=== PATIENT | male | born 1990 | race Caucasian/White ===

== ENCOUNTER 2020-01-07 16:54 | Observation (INO) | payer BC ==
[~2020-01-07] VITALS: Ht 177.8 cm; Wt 79.4 kg
[2020-01-07 18:19] LABS: BASO % 0.1 % (0.0-2.0); EOS % 0.3 % (0-4.0); GRAN % 85.3 % (42.2-75.2); HEMATOCRIT 47.3 % (42.0-52.0); HEMOGLOBIN 16.5 g/dl (13.5-18.0); LYMPH % 8.7 % (20.0-51.0); MEAN CELL VOLUME 89 fl (80.0-100.0); MEAN CORPUSCULAR HEMOGLOBIN 31 pg (27.0-31.0); MEAN CORPUSCULAR HGB CONC 35 g/dl (33.0-37.0); MEAN PLATELET VOLUME 9.1 fl (7.4-10.4); MONO # 0.6 (0.1-0.6); MONO % 5.3 % (1.7-9.3); PLATELET COUNT 205 K/mm3 (130-400); RED BLOOD COUNT 5.32 M/mm3 (4.20-5.60); REDCELL DISTRIBUTION WIDTH-CV 11.9 % (11.5-14.5)
[2020-01-07 18:31] LABS: ALBUMIN 5.3 gm/dL (3.5-5.0); BILIRUBIN,TOTAL 1.4 mg/dL (0.0-1.0); C-REACTIVE PROTEIN 0.9 mg/dL (0.0-0.9); CALCIUM 10.2 mg/dL (8.4-10.2); CREATININE, serum 1.05 (0.66-1.25); POTASSIUM 3.8 mmol/L (3.4-5.0); TOTAL PROTEIN 8.5 gm/dL (6.4-8.2)
[2020-01-07 20:38] LABS: COLLECTION METHOD CLEAN CATCH
[2020-01-07 20:57] LABS: PH 6 (5-8); SQUAMOUS EPITHELIAL None Seen /hpf; URINE APPEARANCE Clear; URINE BACTERIA None Seen /hpf; URINE BILIRUBIN Negative (NEGATIVE); URINE BLOOD Negative (NEGATIVE); URINE COLOR Straw; URINE GLUCOSE Negative (NEGATIVE); URINE KETONE Trace (NEGATIVE); URINE LEUKOCYTE ESTERASE Negative (NEGATIVE); URINE NITRATE Negative (NEGATIVE); URINE PROTEIN(semi-quant) Negative (NEGATIVE); URINE RBC 0-2 /hpf; URINE UROBILINOGEN Negative (NEGATIVE)
--- NOTE | 2020-01-07 22:35 | NUR ---
REPORT RECEIVED FROM PACU NURSE. AWAITING ARRIVAL OF PATIENT TO ROOM 341, POST LAP APPY
[2020-01-07 22:45] VITALS: BP 101/56; PULSE 61; TEMP 98.1
--- NOTE | 2020-01-07 22:45 | NUR ---
ADMITTED FROM PACU VIA HOSPITAL BED, POST OP, TO ROOM 341. IV SITE INTACT TO LAC AND PATENT. PATIENT DENIES CHEST PAIN, SHORTNESS OF BREATH AND NAUSEA. DENIES URGE TO VOID.
--- NOTE | 2020-01-07 22:55 | NUR ---
PATIENT DENIES NAUSEA, DENIES URGE TO VOID AT THIS TIME.
[2020-01-07 23:15] VITALS: BP 100/61; PULSE 62
--- NOTE | 2020-01-07 23:15 | NUR ---
SEE eMAR FOR MEDS GIVEN FOR C/O PAIN. IVF INFUSING WITH NO PROBLEMS.
[2020-01-07 23:30] VITALS: BP 100/63; PULSE 65
[2020-01-08] VITALS (9 sets, daily range): BP systolic 95–126; BP diastolic 49–63; PULSE 51–63; TEMP 97.5–98.7
--- NOTE | 2020-01-08 02:14 | NUR ---
PATIENT TOLERATED CHICKEN NOODLE SOUP, REPORTS MILD TO NO PAIN, ABLE TO REST WITH EYES CLOSED. IV FLUIDS PATENT. DENIES ANY NEEDS AT THIS TIME.
--- NOTE | 2020-01-08 07:10 | NUR ---
Lying in bed with eyes open. Minimal pain in abd at this time. Has been passing gas. Lap sites to abd x3 with edges well approximated, no redness/swelling/discharge, open to air. Provided toothbrush and toothpaste per patient request. Hopes to go home sometime today. Denies any additional needs at this time.
--- NOTE | 2020-01-08 07:25 | NUR ---
CHANGE OF SHIFT REPORT GIVEN TO DAY SHIFT NURSEANDREW.
--- NOTE | 2020-01-08 08:27 | NUR ---
Having soreness in abd area. Administer ibuprofen as prescribed. Assist patient to upright position in bed to eat breakfast. Flu vaccine was administered as well. Patient denies additional needs.
--- NOTE | 2020-01-08 10:21 | NUR ---
Rating pain 3/10 in abd, requests Tramadol to stay ahead of pain. Administer Tramadol as prescribed. Discussed with the patient here in a little bit getting up and walking. Patient verbalizes understanding and denies additional needs at this time.
--- NOTE | 2020-01-08 11:45 | NUR ---
Patient up ambulating in the halls. Some discomfort but is tolerable.
--- NOTE | 2020-01-08 12:50 | NUR ---
Rating pain 6/10 in abd and would like pain medication. Administer Tylenol as prescribed. Patient denies additional needs.
--- NOTE | 2020-01-08 14:55 | NUR ---
Sitting up in bed watching TV. Rates pain 5/10 in abd, feels with movement the pain increases. Would like pain medication. Administer Tramadol and ibuprofen as prescribed. Patient denies any additional needs at this time.
--- NOTE | 2020-01-08 15:44 | NUR ---
Discharge instructions reviewed with the patient. Questions answered. Verbalizes understanding and signs discharge paperwork. Discharge packet provided to the patient. Patient's father will be coming to pick him up when his flight lands. Patient will use call light when father is here to pick him up.
--- NOTE | 2020-01-08 16:47 | NUR ---
Patient dad here to pick him up. Patient has all belongings. Denies any additional concerns. Walked out to [facility] by CAITY Baltazar.
== END 2020-01-08 16:51 | disposition home or self-care (01) ==
LOC: COL.ER 16:54 → SURG 20:37 → SDCO 20:37 → SURG 20:37
PROVIDERS: Emergency Medicine; ADMIT Surgery
DX: K35.80 Unspecified acute appendicitis (principal); Z88.5 Allergy status to narcotic agent; Z23 Encounter for immunization
CPT/HCPCS: G0008; G0378; J1170; J1885; J2405; J2543; J2704; J3010; J7030; J7120; Q9967